=== PATIENT | female | born 1965 | race Caucasian/White ===

== ENCOUNTER → 2017-02-19 | Outpatient (CLI) | payer OTHER ==
[~2017-02-19] MED LIST: ALBU90OI INH; ALPR.5 PO; Amlodipine-Ben1 EAC1 PO; CHOL10002 PO; CYCL10 PO; GABA100 PO; HYDMOR2 PO
== END | disposition home or self-care (01) ==
LOC: LAB EV 14:38
DX: S91.104A Unspecified open wound of right lesser toe(s) without damage to nail, initial encounter (principal)
CPT/HCPCS: 87070; 87075; 87077; 87147; 87186; 87205